=== PATIENT | male | born 1970 ===

== ENCOUNTER 2023-04-13 04:29 | Day surgery (SDC) | payer OTHER ==
[2023-04-12 10:06] VITALS: BMI 25.0
[2023-04-13] MEDS ORDERED: ONDANSETRON 4 MG/2 ML VIAL IVPUSH PRN (11:38)
[2023-04-13] MEDS ORDERED: oxyCODONE HCL 5 MG TABLET PO PRN (11:38)
[2023-04-13] MEDS ORDERED: LACTATED RINGERS SOLUTION 1,000 ML IV SCH (11:45)
[2023-04-13] MEDS ORDERED: BACITRACIN ZINC 15 GM TUBE TOPICAL OINTMENT ONE (11:55)
[2023-04-13] MEDS ORDERED: BUPIVACAINE HCL/PF 0.5% (5MG/ML) 10 ML VIAL ONE (11:55)
[2023-04-13] MEDS ORDERED: LIDOCAINE HCL 1%, 10 MG/ML (10ML VIAL) MDV ONE (11:55)
[2023-04-13] MEDS ORDERED: LIDOCAINE HCL 2% (20ML MULTI-DOSE VIAL) ONE (12:07)
[2023-04-13] MEDS ORDERED: ELECTROLYTE-148 SOLN 1,000 ML IV SCH (12:15)
[2023-04-13] MEDS ORDERED: MIDAZOLAM HCL 2 MG/2 ML SINGLE DOSE VIAL ONE (12:20)
[2023-04-13] MEDS ORDERED: PROPOFOL 40 ML ONE (12:25)
[2023-04-13] MEDS ORDERED: KETOROLAC TROMETHAMINE 30 MG/1 ML VIAL ONE (12:29)
[2023-04-13] MEDS ORDERED: DEXAMETHASONE SOD PHOSPHATE 4 MG/1 ML VIAL ONE (12:29)
[2023-04-13] MEDS ORDERED: ONDANSETRON 4 MG/2 ML VIAL ONE (12:29)
[2023-04-13] MEDS ORDERED: ceFAZolin SODIUM 1 GM VIAL ONE (12:29)
[2023-04-13] MEDS ORDERED: ceFAZolin SODIUM 1 GM VIAL IVPB ONE (12:30)
[2023-04-13] MEDS ORDERED: LIDOCAINE HCL 2% (50ML VIAL) NR ONE ×2 (12:38)
[2023-04-13] MEDS ORDERED: BACITRACIN ZINC 15 GM TUBE TOPICAL OINTMENT TP ONE (12:43)
[2023-04-13 14:40] VITALS: RESP 18
[2023-04-13 15:09] VITALS: BP 123/84; PULSE 71; TEMP 97.9
== END 2023-04-13 15:11 | disposition home or self-care (01) ==
LOC: JASU-SURG 04:29
PROVIDERS: ATTEND Urology
PROC: 0VTTXZZ Resection of Prepuce, External Approach (ICD-10-PCS; principal; 2023-04-13 10:00)
DX: N47.1 Phimosis (principal)
CPT/HCPCS: 88304-TC; 94760